=== PATIENT | female | born 1975 | race African-American/Black ===

== ENCOUNTER 2020-12-03 09:20 | Emergency (ER) | payer OTHER ==
[~2020-12-03] VITALS: Ht 175.3 cm; Wt 71.4 kg
--- NOTE | 2020-12-03 09:49 | NUR ---
PATIENT WALKED BACK FROM TRIAGE WITH CHIEF C/O COUGH X5-6- DAYS. PATIENT REPORTS SPRING, AND GENERALIZED BODY ACHES. NADN, CONNECTED TO MONITOR, VSS, CALL LIGHT WITHIN REACH.
--- NOTE | 2020-12-03 10:14 | NUR ---
Ann kinney in [facility] [place] - 12/03/20 at 1014 by [email or web address] MEDICATIONS REQUESTED FROM PHARMACY.
[2020-12-03 10:49] VITALS: BP 133/84
--- NOTE | 2020-12-03 10:56 | NUR ---
Patient given discharge instructions and they have confirmed that they understand the instructions. Patient ambulatory with steady gait. NAD, all questions answered appropriately, denies additional needs at this time. No personal belongings left in room after discharge.
== END 2020-12-03 10:57 | disposition home or self-care (01) ==
LOC: ED 10:51
DX: B34.9 Viral infection, unspecified (principal); Z20.822 Contact with and (suspected) exposure to COVID-19
CPT/HCPCS: 99283; U0003; U0005